=== PATIENT | female | born 2005 | race Asian ===

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

== ENCOUNTER 2024-01-27 11:27 | Emergency (ER) | payer MEDICAID ==
[~2024-01-27] VITALS: Ht 157.5 cm; Wt 51.8 kg
[2024-01-27] MEDS: HYDROcodone/acetaminophen 10/325mg tab PO ONE (12:42)
[2024-01-27] MEDS: LIDOcaine 1% W/epiNEPHrine 1:100,000 20ml vial SQ ONE (12:43)
[2024-01-27] MEDS ORDERED: HYDR-3973 PO (15:02)
[2024-01-27] MEDS ORDERED: CEPH-585 PO (15:02)
[2024-01-27] MEDS ORDERED: LIDO30CR TOP (15:02)
[2024-01-27 15:41] VITALS: BP 108/60; PULSE 64; RESP 18; TEMP 97.9; O2SAT 99
== END 2024-01-27 15:43 | disposition home or self-care (01) ==
LOC: ER 11:27
DX: N75.0 Cyst of Bartholin's gland (principal)
CPT/HCPCS: 56420; 99284; A6407